=== PATIENT | male | born 1945 | race Caucasian/White ===

== ENCOUNTER 2025-01-30 11:17 | Emergency (ER) | payer MEDICARE, SELFPAY ==
[2025-01-30] VITALS (21 sets, daily range): BP systolic 139–193; BP diastolic 71–100; BMI 25.7
[2025-01-30 11:23] LABS: Glucose - Point of Care 111 mg/dl (70-99)
--- NOTE | 2025-01-30 11:26 | ED.CVA ---
History of Present Illness
General
Chief Complaint: CVA/TIA Symptoms
Time Seen by Provider: 01/30/25 11:26
Onset of Stroke Symptoms
Onset of symptoms known: Yes
Date of onset of symptoms: 01/30/25
Time of onset of symptoms: 11:00
History of Present Illness
History of Present Illness:
FOCUSED PAST MEDICAL HISTORY
- 'Cardiac surgery'
REVIEW OF OLD RECORDS
- No old records at [facility]
Note:
CHIEF COMPLAINT(S)
Disorientation, slurred speech, headache, near-syncope, and fall.
HISTORY OF PRESENT ILLNESS
The patient is a 79-year-old male who presented with acute onset of disorientation, slurred speech, and headache approximately 1 to 1.5 hours prior to the emergency room visit. The patients symptoms began around 10:00 AM after being awake since 5:30
AM without prior incidents. He experienced near-syncope while sitting, stating, 'my head hurts,' and was unable to discern ambient heat.
About an hour prior to presentation, the patient fell backwards off a wooden plank outside a shed, rolling into the grass. The patients adoption specialist did not witness the patient strike his head during the fall. The adoption specialist expressed concern, stating
the patient is 'not his normal self.'
The patient is currently on Plavix for post-heart surgery, no history of atrial fibrillation. His heart surgery was performed at [facility] in [place].
The patient�s mental status seemed altered to the family member, and upon questioning, he is able to recognize the month correctly. His significant other notes that he is still not acting like his normal self.
MEDICATIONS
The patient is on apixaban (Eliquis) for anticoagulation following cardiac surgery.
PHYSICAL EXAM
- General: Well appearing in no distress
- HEENT: Moist oral mucosa
- Cardiovascular: No murmurs, normal heart rate, regular rhythm, No chest wall tenderness
- Pulmonary: No respiratory distress, breath sounds are clear and equal
- Abdomen: Soft with no peritoneal signs, no tenderness
- Neurologic: Some questionable facial asymmetry, normal strength in all extremities, no definite coordination deficits, mild dysarthria, mild aphasia, stroke scale 2
- Psychiatric: Appropriate mental status, normal insight and judgement
- Extremities: Nontender, no edema, moves all extremities equally
- Skin: No rash, no lesions
PLAN
1. Perform a CT scan of the head to evaluate for hemorrhage, especially due to fall and anticoagulant use.
2. Monitor neurological status closely for any changes or deterioration.
3. Confirm current medications and anticoagulation management.
DIFFERENTIAL DIAGNOSIS
The Differential Diagnosis includes, in no particular order and is not limited to:
1. Intracranial hemorrhage
2. Transient ischemic attack
3. Stroke
4. Concussion
5. Syncope
6. Drug side effect (apixaban)
7. Vestibular dysfunction
8. Hypoglycemia
9. Dehydration
10. Cardiovascular event (e.g., arrhythmia)
RADIOLOGY
- CT head shows no bleed, CT perfusion is markedly abnormal, proximal right ICA short segment occlusion noted
EKG
- Sinus 87, normal axis, nonspecific ST abnormality
LABS
- White count 11.4, hemoglobin normal, chemistries unremarkable
UPDATE
-SUMMARY OF ENCOUNTER
The patient, a 79-year-old male, was seen in the emergency department as a stroke alert following a recent fall with symptoms of disorientation, slurred speech, and headache. A CT scan of the head was conducted, revealing no bleed. However, a
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 Cardiology evaluated the patient, and treatment included the administration of TNK
(tenecteplase) after receiving labetalol to manage blood pressure.
DISPOSITION
The patient is currently awaiting transfer to [facility] for further management.
ASSESSMENT
Stroke, possible transient ischemic attack (TIA) due to multifocal high-grade stenosis in the internal carotid artery.
EMERGENCY TREATMENTS ADMINISTERED
TNK (tenecteplase), labetalol.
MANAGEMENT OF THE PATIENTS CARE WAS DISCUSSED WITH
Cardiology.
PLAN
The patient is to be transferred to [facility] for further management of stroke/TIA symptoms and for continued evaluation and treatment of the high-grade stenosis identified in the ICA.
INDEPENDENT REVIEW OF LABS AND INTERPRETATION OF TESTS
- My independent CT head interpretation shows no intracranial bleed.
- My independent perfusion study interpretation is markedly abnormal.
- My independent CTA interpretation shows multifocal high-grade stenosis in the [place] and cavernous right ICA.
MEDICAL DECISION MAKING
-Number and Complexity of Problems Addressed: Chronic conditions affecting care include history of heart surgery on anticoagulation. Differential diagnosis includes intracranial hemorrhage, transient ischemic attack, stroke, concussion, syncope,
drug side effect (apixaban), vestibular dysfunction, hypoglycemia, dehydration, and cardiovascular event (e.g., arrhythmia).
-Data:
Category 1: Tests and documents ordered include CT head, perfusion study, and CTA. Cardiology was consulted for evaluation.
Category 2: Clinical information from CTA and perfusion study.
Category 3: Futures Trader consulted for management plan.
DIAGNOSIS
- Stroke, unspecified (ICD-10: I63.9)
- Transient ischemic attack (TIA) (ICD-10: G45.9)
- Multifocal high-grade stenosis in the internal carotid artery (ICD-10: I65.23)
- Patient was seen by Dr. Houser in the emergency department and given the markedly abnormal perfusion study TNK was ordered
- Right proximal ICA occlusion noted, Dr. Houser recommends transfer to higher level of care, patient and significant other wanted to go to [place]
- BP was as high as 190 before labetalol and was improved before TNK was given
- Repeat blood pressure 150 systolic
Phy Exam
Physical Exam
Physical Exam:
See HPI
Course
Orders/Labs/Results
Orders:
Orders
01/30/25 11:28
Electrocardiogram (*1) Urgent
Reason for Study: Fatigue / Weakness
EKG- Treatment ONCE
01/30/25 11:31
Complete Blood Count/With Diff Urgent
Comprehensive Metabolic Panel Urgent
PTT Urgent
Prothrombin Time Urgent
01/30/25 11:32
CT BRAIN PERF STROKE ALERT Urgent
Comment:
Reason For Exam: alt ms after fall dysarthria
CT HEAD STROKE ALERT W/o Cont Urgent
Comment:
Reason For Exam: alt ms after fall dysarthria
CT HEAD/NECK ANG STROKE ALERT Urgent
Comment:
Reason For Exam: alt ms after fall dysarthria
01/30/25 12:03
Labetalol HCl [Trandate] 10 mg IV NOW STA
01/30/25 12:04
Labetalol HCl [Trandate] 20 mg .ROUTE .STK-MED ONE
01/30/25 12:06
Tenecteplase [Tnkase] 20 mg Syringe [Syringe Non-Pump] 0 ml IV NOW
Provider explained risk/benefits to patient &/or caregiver?: Yes
Blood pressure: 193/82
Abnormal Lab Results
01/30/25 01/30/25
11:21 11:31
WBC 11.4 H 10^3/uL
(4.8-10.8)
Absolute Neuts (auto) 9.6 H 10^3/uL
(1.4-6.5)
Absolute Lymphs (auto) 1.0 L 10^3/uL
(1.2-3.4)
Absolute Monos (auto) 0.7 H 10^3/uL
(0.1-0.6)
Neutrophils % 83.8 H %
(42.2-75.2)
Lymphocytes % 8.3 L %
(20.5-51.1)
Glucose 124 H mg/dl
(70-99)
Total Bilirubin 1.5 H mg/dl
(0.2-1.3)
POC Glucose 111 H mg/dl
(70-99)
01/30/25 11:31
01/30/25 11:31
Vital Signs
Initial and Last Documented VS:
Initial Vital Signs
Temp Pulse Resp BP Pulse Ox
36.8 C 84 20 175/100 98
01/30/25 11:21 01/30/25 11:21 01/30/25 11:21 01/30/25 11:21 01/30/25 11:21
Last Documented Vital Signs
Temp Pulse Resp BP Pulse Ox
36.8 C 76 24 175/80 97
01/30/25 11:21 01/30/25 13:01 01/30/25 13:01 01/30/25 13:01 01/30/25 12:50
*Pulse Oximetry
SaO2: 98
Oxygen Mode of Delivery: Room air
Patient hypoxic: no
*Critical Care Note
Total Time (30-74mins, 75-104mins- exclusive of procedures): 65
comment:
The patient was seen immediately upon arrival as a stroke alert, markedly abnormal CT imaging. Arranging transfer emergently to [facility]. Dr. Riddle is the accepting physician.
ED Attending Note
-
Portions of this chart may have been created with voice recognition software.� Occasional wrong word or��sound alike� substitutions may have occurred due to the inherent limitations of voice recognition software.
Discharge Plan
Departure
Patient Disposition: Admit
Date of Disposition: 01/30/25
Time of Disposition: 12:10
Presentation/result/management discussed w/ accepting MD/DO: Hospitalist
Discharge Problem:
Acute cerebrovascular accident (CVA)
Prescriptions:
No Action
multivitamin Tablet
1 tab PO DAILY
atorvastatin 20 mg tablet
20 mg PO DAILY
metoprolol succinate 50 mg tablet extended release 24 hr
50 mg PO DAILY
clopidogrel 75 mg tablet
75 mg PO DAILY
amlodipine 5 mg tablet
5 mg PO DAILY
aspirin 81 mg Tablet,Chewable
81 mg PO DAILY
ezetimibe 10 mg tablet
10 mg PO DAILY
Referrals:
UNKNOWN - PT NOT,INTERVIEWE [Family Provider]
Interventions
Interventions:
*Risk Screen - Suicide Last Done: 01/30/25 11:44
*General Assessment Last Done: 01/30/25 11:21
*Neglect/Abuse Screening Last Done: 01/30/25 11:44
*ED- Fall Risk Assessment Last Done: 01/30/25 11:31
*ED COVID-19 Vaccine History Last Done: 01/30/25 11:31
*ED Influenza Vaccine History Last Done: 01/30/25 11:31
ED- Pulmonary Assessment Last Done: 01/30/25 11:32
ED- Neurological Assessment Last Done: 01/30/25 12:12
ED- Cardiac Assessment Last Done: 01/30/25 11:32
ED Swallowing Screen Last Done: 01/30/25 12:36
Discharge Date and Time
Print Language: MONGOLIAN
[2025-01-30 11:37] LABS: Hematocrit 45.1 % (39.0-52.0); Hemoglobin 15.3 g/dL (13.0-18.0); Mean Corp Hgb Conc. 33.9 g/dL (33.0-37.0); Mean Corpuscular Volume 82.8 fL (80.0-94.0); Nucleated Red Blood Cells % 0 % (-); Platelet Count 213 10^3/uL (130-400); Red Cell Dist. Width 12.3 % (11.5-14.5)
--- NOTE | 2025-01-30 11:38 | CON.NEURO4 ---
Addendum entered and electronically signed by Stiven Houser MD 01/30/25 13:48:
Studies reviewed.
I have personally examined the patient. I reviewed and agree with the PRESCHOOL PROGRAM DIRECTOR's Note.
My addenda:
Awake, alert, interactive. No acute distress.
Speech minimally slow.
Follows 2-step requests w/o difficulty. No tremor.
Extra-ocular movements grossly intact.
Facial movements full and symmetric. Hearing intact to normal conversational volume.
Normal UE movements bilaterally.
Neck: full ROM.
Chest: no dyspnea
Heart: no JVD
Ext: (-) Clubbing, (-) Cyanosis, (-) Edema
IMPRESSIONS/RECOMMENDATIONS:
Abrupt onset of dysarthria. CT perfusion performed during stroke alert suggested approximately one third of the right hemisphere was at risk for severe ischemic injury and did demonstrate core in addition to the penumbra
Abrupt onset of acute ischemic stroke
Most likely due to
Recommendations:
� administer IV Tenecteplase (TNK) per protocol urgently while keeping patient's blood pressure to a goal of systolic less than 185 and diastolic less than 110 mmHg during infusion of TNK
� place the patient in medical ICU
� goal blood pressure over the next 24 hours would be less than 180/105 mmHg
� check MRI of the brain within 22-32 hours of TNK without contrast for localization of the stroke
� hold all antiplatelets, OAC meds, DOAC meds, heparinoids for next 24 hours
� check lipid panel and hemoglobin A1c
� start atorvastatin 80 mg at bedtime when patient is able to take PO
� goal blood glucose levels for patient would be less than 180 mg/dL
� Speech, PT, OT evaluations needed
� DVT prophylaxis with sequential compression devices over next 24 hours, can be started on Enoxaparin subcutaneous for DVT prophylaxis beginning 24 hours after TNK provision.
� medical educational materials will be provided
Due to focal occlusion of the right internal carotid artery by CT angiogram, patient should be transferred to a thrombectomy capable facility
Total Critical Care Time= 60 minutes.
The neurological system is affected and the action required by me to prevent further deterioration or potential was control over the item listed first in the Impressions and Recommendations section of this note.
I was present and personally examined the patient. I discussed patient care with other professional health care providers.
Will continue to follow patient.
Original Note:
Documented by User: Janki Birch NP 01/30/25 13:09
Consultation - Neurology 4
-
CONSULTING PHYSICIAN: Stiven Houser MD
REFERRING PHYSICIAN: ER/Dr. Martinez
DICTATED BY: JACKIE Echevarria
DATE/TIME OF REQUEST: 01/30/25
DATE/TIME OF CONSULTATION: 01/30/25
Reason for Consultation: Stroke Alert
History of Present Illness:
This is a 79-year-old right-handed male who has presented to the hospital with report of a fall, headache, disorientation, and dysarthria. Patient and his friend at bedside report that he woke up at 0530 this morning in his usual state. Around 1000
the patient was seated and had near-syncope, he then complained of a posterior headache. A few minutes later the patient reports that he was walking out of shed and he thinks he slipped, rolling into the grass. At 1030, his friend reports that he
started to not act like himself, he seemed confused, his speech was slurred and nonsensical, and she thought one side of his face appeared droopy. CT head, CTA head/neck, and CT perfusion were obtained on arrival. CT head is suggestive of an age
indeterminate right temporal-occipital ischemic infarct, ASPECTS score 10. 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 CT brain perfusion demonstrates a
large right hemisphere ischemic penumbra, no core infarct. NIHSS is 3 for mild dysarthria, mild aphasia, and mild left facial drooping. Initially his friend reported that he was taking apixaban, but his Cardiology office was contacted and confirmed
he is only on aspirin and clopidogrel. The patient can answer orientation questions but is confused and unable to provide a history. He reports a 2/10 posterior headache. He denies any dizziness, vision changes, speech/swallow difficulty, numbness,
and weakness.
Past Medical History: HTN, HLD
Surgical History: Some type of cardiac surgery.
Family History: Reviewed and noncontributory.
Social History: Unknown.
Allergies: No known allergies.
Home Medications: See below.
Review of Symptoms:
Patient denies any fever, chest pain, shortness of breath, GI or symptoms.
�Per the HPI.�All systems are reviewed negative except above.
Physical Exam:
The patient is afebrile, abdomen is nondistended, breathing is unlabored, skin is warm and dry, no edema.
NIH Stroke Scale:
I performed the NIH stroke scale on the patient on 01/30/25 at 1145. The patient scored 3 points on the NIH stroke scale assessment, which were assigned as follows: See below.
Neurologic Examination:
The patient is awake, alert and oriented x 3, confused conversation He is able to follow commands and answer some questions appropriately. There is mild aphasia and mild dysarthria. On cranial nerve assessment, pupils are 3 mm bilateral, round and
reactive to light and accommodation. Visual fox are full. Extraocular movements are intact. Facial sensations are intact and bilaterally symmetrical, there is no facial asymmetry. Hearing is diminished bilaterally to normal conversation volume.
Tongue palate and uvula are midline. Sternocleidomastoid strengths are full bilaterally. Motor strengths are 5/5 bilateral upper and lower extremities on medical research [place] scale. There is no drift or involuntary movement noted. Deep tendon
reflexes are 2+ bilateral upper and lower extremities and Babinski is absent bilaterally. There was no extinction noted on double simultaneous stimulation. Coordination is intact by finger to nose bilaterally.
Lab Results: See below.
Neuro Imaging:
1. CT Head 01/30/25: No evidence of acute intracranial hemorrhage. There is a small hypodensity within the right temporal occipital region for which an age-indeterminate infarction is possible. Further evaluation with dedicated MRI may be
considered. ASPECT score: 10.
2. CTA Head/Neck 01/30/25: There is near total occlusion of the right posterior cerebral artery proximally. There is high-grade stenosis within the right petrous and cavernous ICA secondary to calcified atherosclerotic plaque. There is multifocal
mild stenosis within the left intracranial ICA secondary to calcified atherosclerotic plaque. There is focal occlusion of the proximal right internal carotid artery with reconstitution. There is extensive atherosclerotic plaque of the left carotid
bifurcation/proximal ICA with resultant 65% stenosis by NASCET criteria.
3. CT Brain Perfusion 01/30/25: CBF 3ml, Tmax 212ml, Mismatch volume 209ml.
Differentials for the patient's presentation include:
1. Concern for an evolving large right hemisphere ischemic stroke producing symptomatology based on CT brain perfusion findings and R ICA high-grade stenosis.
Patient has the following risk factors for their symptoms: HTN, HLD
IV Tenecteplase/IAT candidacy: He was a candidate for TNK given he is NOT actually on apixaban, large penumbra/no core.
Recommendations:
� administer IV Tenecteplase (TNK) per protocol urgently while keeping patient's blood pressure to a goal of systolic less than 185 and diastolic less than 110 mmHg during infusion of TNK
� Recommending urgent transfer to a tertiary center for Neurosurgery consultation regarding R ICA high grade stenosis.
� goal blood pressure over the next 24 hours would be less than 180/105 mmHg
� check MRI of the brain within 22-32 hours of TNK without contrast for localization of the stroke
� hold all antiplatelets, OAC meds, DOAC meds, heparinoids for next 24 hours
� check lipid panel and hemoglobin A1c
� start atorvastatin 80 mg at bedtime when patient is able to take PO
� goal blood glucose levels for patient would be less than 180 mg/dL
� Speech, PT, OT evaluations needed
� Physiatry consultation warranted
� DVT prophylaxis with sequential compression devices over next 24 hours, can be started on Enoxaparin subcutaneous for DVT prophylaxis beginning 24 hours after TNK provision.
� medical educational materials will be provided
� check an echocardiogram
Discussed patient care with: Dr. Houser, the patient, patient's friend
Vital Signs and Labs
-
Vital Signs and Labs:
Vital Signs
Temp Pulse Resp BP Pulse Ox
98.3 F 85 24 180/86 100
01/30/25 11:21 01/30/25 11:31 01/30/25 11:31 01/30/25 11:29 01/30/25 11:32
Lab Results
01/30/25 11:31
NIH Stroke Score
Subsequent NIH Scale
Date of Subsequent NIH Scale: 01/30/25
Time of Subsequent NIH Scale: 11:45
NIH Stroke Score
Level of Consciousness: 0 - Alert
LOC Questions: 0-Answers both correctly
LOC Commands: 0-Performs both correctly
Best Horizontal Gaze: 0-Normal
Visual Fox: 0=Normal, no visual loss
Facial Palsy: 1=Minor paralysis
Motor - Right Arm: 0=No drift 10 seconds
Motor - Left Arm: 0=No drift 10 seconds
Motor - Right Le-No drift 5 seconds
Motor - Left Le-No drift 5 seconds
Limb Ataxia: 0-Absent
Sensation: 0-Normal
Best Language: 1-Mild aphasia
Dysarthria: 1-Mild slurring
Extinction and Inattention: 0-No abnormality
NIH Total Score:: 3
Modified [place] (mRS) Score
Modified [place] Scale (mRS): Slight disability. Able to look after own affairs.
Score: 2
Alteplase Contraindication
Inclusion and Exclusion criteria reviewed: Yes

Documented by User: Stiven Houser MD 01/30/25 13:43
NIH Stroke Score
NIH Stroke Score
NIH Total Score:: 3
Modified [place] (mRS) Score
Score: 2
[2025-01-30 11:52] LABS: INR 0.97; PT 13.4 Sec (11.4-14.6)
[2025-01-30 11:53] LABS: APTT 25.5 Sec (23.4-35.0)
[2025-01-30 11:57] LABS: ALT (SGPT) 16 U/L (0-50); AST (SGOT) 28 U/L (17-59); Albumin 4.9 g/dl (3.5-5.0); Alkaline Phosphatase 82 U/L (38-126); Blood Urea Nitrogen 15 mg/dl (9-20); Calcium 10.1 mg/dl (8.4-10.2); Carbon Dioxide 30 mmol/L (22-30); Chloride 105 mmol/L (98-107); Estimated Creatinine Clearance 57 ml/min; Glucose 124 mg/dl (70-99); Potassium 4.8 mmol/L (3.5-5.1); Sodium 137 mmol/L (135-145); Total Protein 7.5 g/dl (6.3-8.2); eGFR > 60.00
[2025-01-30] MEDS: TRANDATE 10 MG IV (12:04)
[2025-01-30] MEDS: TNKASE 4 MG IV (12:13)
== END 2025-01-30 13:14 | disposition short-term general hospital (02) ==
LOC: EMR 11:17
PROVIDERS: EMERGENCY PHYSICIAN Emergency Medicine
DX: I63.9 Cerebral infarction, unspecified (principal); I65.23 Occlusion and stenosis of bilateral carotid arteries; R29.703 NIHSS score 3; I10 Essential (primary) hypertension; E78.5 Hyperlipidemia, unspecified; Z79.02 Long term (current) use of antithrombotics/antiplatelets; Z79.82 Long term (current) use of aspirin
CPT/HCPCS: 99291; 96374; 96375; 0042T; 70450; 70496; 70498; 80053; 82962; 85025; 85610; 85730; 93005; J3101; Q9967